=== PATIENT | female | born 1965 | race Two or more races ===

== ENCOUNTER 2024-12-09 06:12 | Day surgery (SDC) | payer BC, SELFPAY | END 2024-12-09 10:59 | disposition home or self-care (01) | LOC: GI 06:12 | PROVIDERS: ATTENDING PHYSICIAN Internal Medicine | DX: Z12.11 Encounter for screening for malignant neoplasm of colon (principal); R19.5 Other fecal abnormalities; D12.3 Benign neoplasm of transverse colon; D12.5 Benign neoplasm of sigmoid colon | CPT/HCPCS: 45385; 45380; 88305 ==